=== PATIENT | female | born 1985 | race Caucasian/White ===

== ENCOUNTER 2019-01-13 02:46 | Emergency (ER) | payer MEDICAID ==
[2019-01-13] MEDS: CARBAMIDE PEROXIDE 6.5% 15ML OTIC LEFT EAR (04:35)
== END 2019-01-13 05:51 | disposition home or self-care (01) ==
LOC: FTE 02:46
DX: H61.22 Impacted cerumen, left ear (principal)
CPT/HCPCS: 69209; 99283-25

== ENCOUNTER 2019-03-04 05:00 | Inpatient (IN) | payer MEDICAID ==
[2019-03-04] MEDS ORDERED: LACTATED RINGER'S 1,000 ML IV (05:25)
[2019-03-04] MEDS ORDERED: AMPICILLIN 2 GM/NS (PMX) 100 ML (05:28)
[2019-03-04] MEDS ORDERED: BUTORPHANOL 2 MG INJ IV ×2 (05:30)
[2019-03-04] MEDS ORDERED: METHYLERGONOVINE 0.2 MG INJ IM ×2 (05:30→07:00)
[2019-03-04] MEDS ORDERED: MISOPROSTOL 200 MCG TAB PR ×2 (05:30→07:00)
[2019-03-04] MEDS ORDERED: IBUPROFEN 600 MG TAB PO (05:30)
[2019-03-04] MEDS ORDERED: OXYTOCIN 30 UNITS/LR 500 ML IV ×2 (05:30→07:00)
[2019-03-04] MEDS ORDERED: CARBOPROST 250 MCG INJ IM ×2 (05:30→07:00)
[2019-03-04 05:46] LABS: ADD MAN DIFF? NO
[2019-03-04] MEDS: LACTATED RINGER'S 1,000 ML IV (05:47)
[2019-03-04] MEDS: AMPICILLIN 2 GM/NS (PMX) 100 ML IV (05:48)
[2019-03-04 05:53] LABS: WHITE BLOOD COUNT 16.4 10^3/ul (4.8-10.8)
[2019-03-04 05:53] LABS: BASOPHILS % 0.2 % (0.0-2.0); HEMATOCRIT 36.4 % (37.0-47.0); HEMOGLOBIN 12.3 g/dl (12.0-16.0); LYMPHOCYTES # 0.9 10^3/ul (0.8-2.9); LYMPHOCYTES % 5.3 % (15.0-51.0); MEAN CORPUSCULAR HEMOGLOBIN 30.1 pg (29.0-33.0); MEAN CORPUSCULAR HGB CONC 33.8 g/dl (32.0-37.0); MEAN CORPUSCULAR VOLUME 89.2 fl (82.0-101.0); MEAN PLATELET VOLUME 10.9 fl (7.4-10.4); MONOCYTE # 0.5 10^3/ul (0.3-0.9); NEUTROPHIL # 14.9 10^3/ul (1.6-7.5); NEUTROPHILS % 90.8 % (39.0-77.0); PLATELET COUNT 229 10^3/UL (140-415); RED BLOOD COUNT 4.08 10^6/ul (4.20-5.40)
[2019-03-04 06:13] LABS: ALANINE AMINOTRANSFERASE 17 IU/L (13-69); ALBUMIN 3.7 g/dl (3.3-4.9); ALBUMIN/GLOBULIN RATIO 1.05; ALKALINE PHOSPHATASE 171 IU/L (42-121); ANION GAP 9 (5-13); ASPARTATE AMINO TRANSFERASE 23 IU/L (15-46); BILIRUBIN,INDIRECT 0.3 mg/dl (0-1.1); BILIRUBIN,TOTAL 0.3 mg/dl (0.2-1.3); BLOOD UREA NITROGEN 10 mg/dl (7-20); CALCIUM 9.6 mg/dl (8.4-10.2); CARBON DIOXIDE 21 mmol/L (21-31); CHLORIDE 104 mmol/L (97-110); Estimated GFR > 60 mL/min (>60); GLUCOSE 162 mg/dl (70-220); POTASSIUM 3.8 mmol/L (3.5-5.1); SODIUM 134 mmol/L (135-144); TOTAL PROTEIN 7.2 g/dl (6.1-8.1); URIC ACID 4.1 mg/dl (3.1-7.9)
[2019-03-04 06:16] LABS: INR 0.88; PT RATIO 0.9
[2019-03-04] MEDS: LIDOCAINE 1% (MPF) 30 ML INJ INJ (06:34)
[2019-03-04] MEDS: OXYTOCIN 30 UNITS/LR 500 ML IV ×4 (06:35→23:38)
[2019-03-04 06:38] LABS: ADD UMIC YES; UR ASCORBIC ACID 40 mg/dL (NEGATIVE); UR BACTERIA MANY /HPF (NONE SEEN); UR BILIRUBIN (Dip) NEGATIVE (NEGATIVE); UR BLOOD (Dip) 2+ mg/dL (NEGATIVE); UR CLARITY TURBID (CLEAR); UR COLOR AMBER (YELLOW); UR GLUCOSE (Dip) 1+ mg/dL (NEGATIVE); UR KETONES (Dip) 2+ mg/dL (NEGATIVE); UR LEUKOCYTE ESTERASE (Dip) NEGATIVE Leu/ul (NEGATIVE); UR MUCUS MANY /HPF (NONE SEEN); UR NITRITE (Dip) NEGATIVE (NEGATIVE); UR RBC 56 /HPF (0-5); UR SPECIFIC GRAVITY (Dip) 1.025 (1.003-1.030); UR SQUAMOUS EPITHELIAL CELL MANY /HPF (FEW); UR TOTAL PROTEIN (Dip) 2+ mg/dl (NEGATIVE); UR UROBILINOGEN (Dip) NEGATIVE (NEGATIVE); UR WBC 12 /HPF (0-5)
[2019-03-04 06:44] LABS: HEPATITIS B SURFACE ANTIGEN NEGATIVE (NEGATIVE)
[2019-03-04] MEDS ORDERED: HYDROCODONE/APAP (5/325) TAB PO (07:00)
[2019-03-04] MEDS ORDERED: AMPICILLIN 1 GM/NS (PMX) 50 ML IV (09:30)
[2019-03-04] MEDS: LACTATED RINGER'S 1,000 ML IV* ×3 (11:42→23:38)
[2019-03-04] MEDS: IBUPROFEN 600 MG TAB PO ×3 (12:45→23:41)
[2019-03-04] MEDS: BENZOCAINE 20% 56 ML SPRAY TOP (17:15)
[2019-03-04] MEDS: LANOLIN HPA 1 PKT TOP (17:15)
[2019-03-04 19:08] LABS: RAPID PLASMA REAGIN NONREACTIVE (NR)
[2019-03-04] MEDS: MINERAL OIL LIGHT 10 ML VIAL TOP (23:37)
[2019-03-05] MEDS: IBUPROFEN 600 MG TAB PO ×3 (05:53→18:09)
[2019-03-05] MEDS: LACTATED RINGER'S 1,000 ML IV* (06:57)
[2019-03-05 07:26] LABS: ADD MAN DIFF? NO
[2019-03-05 07:47] LABS: WHITE BLOOD COUNT 9.3 10^3/ul (4.8-10.8)
[2019-03-05 07:47] LABS: BASOPHILS % 0.2 % (0.0-2.0); EOSINOPHILS # 0.1 10^3/ul (0.0-0.5); HEMATOCRIT 32.1 % (37.0-47.0); HEMOGLOBIN 10.3 g/dl (12.0-16.0); LYMPHOCYTES # 1.9 10^3/ul (0.8-2.9); LYMPHOCYTES % 20.8 % (15.0-51.0); MEAN CORPUSCULAR HEMOGLOBIN 29.1 pg (29.0-33.0); MEAN CORPUSCULAR HGB CONC 32.1 g/dl (32.0-37.0); MEAN CORPUSCULAR VOLUME 90.7 fl (82.0-101.0); MEAN PLATELET VOLUME 10.8 fl (7.4-10.4); MONOCYTE # 0.6 10^3/ul (0.3-0.9); NEUTROPHIL # 6.7 10^3/ul (1.6-7.5); NEUTROPHILS % 71.6 % (39.0-77.0); PLATELET COUNT 192 10^3/UL (140-415); RED BLOOD COUNT 3.54 10^6/ul (4.20-5.40); RED CELL DISTRIBUTION WIDTH 13.6 % (11.5-14.5)
[2019-03-05] MEDS: MAGNESIUM HYDROXIDE 30ML CUP PO (09:02)
[2019-03-05] MEDS: BISACODYL 10 MG SUPP PR (17:05)
[2019-03-06] MEDS: IBUPROFEN 600 MG TAB PO ×3 (00:18→11:27)
[2019-03-06] MEDS: DIPHTH/TET/ACEL PERTUSS (ADULT) 0.5 ML VIAL IM* (07:47)
[2019-03-06] MEDS: LANOLIN HPA 1 PKT TOP (11:27)
== END 2019-03-06 15:17 | disposition home or self-care (01) | DRG 807 ==
LOC: OBT 05:00 → L-D 05:00 → OBT 05:15 → L-D 05:15 → PP1 08:21
PROC: 10E0XZZ Delivery of Products of Conception, External Approach (ICD-10-PCS; principal; 2019-03-04)
PROC: 0KQM0ZZ Repair Perineum Muscle, Open Approach (ICD-10-PCS; 2019-03-04)
PROC: 3E033VJ Introduction of Other Hormone into Peripheral Vein, Percutaneous Approach (ICD-10-PCS; 2019-03-04)
DX: O24.429 Gestational diabetes mellitus in childbirth, unspecified control (principal); O70.1 Second degree perineal laceration during delivery; Z3A.39 39 weeks gestation of pregnancy; Z37.0 Single live birth
CPT/HCPCS: 80053; 81001; 84560; 85025; 85610; 85730; 86592; 86850; 86900; 86901; 87340